=== PATIENT | male | born 1980 | race Asian ===

== ENCOUNTER 2018-03-21 10:30 | Emergency (ER) | payer BC, OTHER ==
[~2018-03-21] VITALS: Ht 188 cm; Wt 175.7 kg
[2018-03-21 11:08] VITALS: BP 158/94
== END 2018-03-21 12:54 | disposition home or self-care (01) ==
LOC: ED 11:32
DX: M25.572 Pain in left ankle and joints of left foot (principal); M79.671 Pain in right foot; M10.9 Gout, unspecified
CPT/HCPCS: 36415; 82962; 84550; 99285